=== PATIENT | male | born 1975 | race African-American/Black ===

== ENCOUNTER 2017-01-18 14:35 | Emergency (ER) | payer OTHER ==
[~2017-01-18] VITALS: Ht 180.3 cm; Wt 95.3 kg
--- NOTE | 2017-01-18 15:06 | NUR ---
arrival patient to er via pov with complaints of urinating blood patient placed on monitor vs wnl at this time
--- NOTE | 2017-01-18 15:17 | ER.PDOC ---
General Chief Complaint: Male Stated Complaint: URINATING BLOOD TRAVEL OUT OF US: No Time seen by MD: 15:03 Source: patient Exam Limitations: no limitations History of Present Illness Initial Comments blood in urine sudden onset 1 day no pain no hx no fever Allergies: Coded Allergies: No Known Allergies (Unverified , 01/18/17) Past Medical History Medical History: no pertinent history Surgical History: no surgical history Family History Significant Family History: no pertinent family hx Social History Smoking: non-smoker Alcohol Use: occassionally Review of Systems Constitutional: denies fever EENTM: denies eye pain Respiratory: denies cough Cardiovascular: denies chest pain Gastrointestinal: denies abdominal pain Genitourinary: hematuria Musculoskeletal: denies back pain Psychiatric/Neurological: denies anxiety Hematologic/Lymphatic: denies anemia All Other Systems: Reviewed and Negative Physical Exam General Appearance: No Apparent Distress, WD/WN EENT: eyes nml inspection, nml ENT inspection Neck: Non-Tender, Full Range of Motion Respiratory: chest non-tender, lungs clear CVS: reg rate & rhythm Gastrointestinal: Normal Bowel Sounds, No Organomegaly Back: Normal Inspection Extremities: Normal Range of Motion Neurologic/Psychiatric: tele tech II-XII NML as Tested Skin: Normal Color Lymphatic: No Adenopathy Results/Orders Results/Orders Laboratory Tests Test 01/18/17 15:13 01/18/17 15:19 Urine Collection Type VOID Urine Color BLOODY (YELLOW) Urine Appearance BLOODY (CLEAR) Urine Bilirubin NEGATIVE MG/DL (NEGATIVE) Urine Ketones NEGATIVE (NEGATIVE) Urine Specific Chestnut 1.015 (1.005-1.035) Urine pH 6.5 (5.0-6.0) Urine Protein 500 mg/dL (NEGATIVE) Urine Urobilinogen NORMAL (NEGATIVE) Urine Nitrate NEGATIVE (NEGATAIVE) Urine Leukocyte Esterase NEGATIVE (NEGATIVE) Urine Blood 250 4+ (NEGATIVE) Urine RBC TNTC RBC/HPF (NONE SEEN) Urine WBC NONE SEEN WBC/HPF (0-2) Urine Squamous Epithelial Cells NONE SEEN #/HPF (FEW) Urine Bacteria NONE SEEN (NONE SEEN) Urine Glucose NORMAL (NEGATIVE) White Blood Count 5.0 10^3/uL (4.5-11.0) Red Blood Count 4.91 10^6/uL (4.50-5.90) Hemoglobin 12.5 g/dL (13.9-16.3) Hematocrit 39.9 % (37.0-53.0) Mean Corpuscular Volume 81.3 fL (78-100) Mean Corpuscular Hemoglobin 25.5 pg (26-34) Mean Corpuscular Hemoglobin Concent 31.3 g/dL (33-37) Red Cell Distribution Width 14.4 % (11.5-14.5) Platelet Count 247 10^3/uL (150-400) Mean Platelet Volume 9.7 fL (7.8-11.0) Neutrophils (%) (Auto) 42.8 % (41.0-85.0) Lymphocytes (%) (Auto) 43.8 % (24.0-44.0) Monocytes (%) (Auto) 7.0 % (5.0-12.0) Neutrophils # (Auto) 2.2 10^3/uL (1.8-7.7) Lymphocytes # (Auto) 2.2 10^3/uL (1.0-4.8) Monocytes # (Auto) 0.4 10^3/uL (0.3-0.8) Absolute Immature Granulocyte (auto 0 10^3 u/L (0-2) Eosinophils % 5.4 % (0.0-5.0) Basophils % 1.0 % (0.0-0.2) Basophils # 0.1 10^3/uL (0.0-0.1) Eosinophil Count 0.3 10^3/uL (0.0-0.2) Sodium Level 138 mmol/L (132-145) Potassium Level 3.7 mmol/L (3.6-5.2) Chloride Level 103.0 mmol/L (96-109) Carbon Dioxide Level 26.9 mmol/L (20.0-32) Anion Gap 11.8 Blood Urea Nitrogen 17 mg/dL (7-18) Creatinine 1.22 mg/dL (0.59-1.40) Estimated GFR () 78.8 (>/=60) BUN/Creatinine Ratio 13.0 Glucose Level 94 mg/dL (70-110) Calcium Level 8.9 mg/dL (8.4-10.5) Total Bilirubin 0.4 mg/dL (0.2-1.0) Aspartate Amino Transf (AST/SGOT) 21 U/L (0-35) Alanine Aminotransferase (ALT/SGPT) 32 U/L (12-78) Alkaline Phosphatase 104 U/L (50-136) Total Protein 8.7 g/dL (6.4-8.2) Albumin 4.0 g/dL (3.4-5.0) Globulin 4.7 Percent Immature Gran (Cell Imm) 0.00 % (0.00-0.50) Progress Progress hematuria Departure Time of Disposition: 15:56 Disposition: 01 HOME, SELF-CARE Impression: Primary Impression: Hematuria Condition: Stable Additional Instructions: see urology regine Duration or Time Spent with Pa: 15 O'TAYLOR MORSE MD Jan 18, 2017 15:16
[2017-01-18 15:26] LABS: BILIRUBIN,URINE NEGATIVE (NEGATIVE); UROBILINOGEN,URINE NORMAL (NEGATIVE)
[2017-01-18 15:33] LABS: BASOPHIL # 0.1 10^3/uL (0.0-0.1); EOSINOPHIL # 0.3 10^3/uL (0.0-0.2); EOSINOPHIL % 5.4 % (0.0-5.0); HEMOGLOBIN 12.5 g/dL (13.9-16.3); LYMPHOCYTES # 2.2 10^3/uL (1.0-4.8); LYMPHOCYTES % 43.8 % (24.0-44.0); MEAN CELL HGB 25.5 pg (26-34); MEAN CELL HGB CONCENTRATION 31.3 g/dL (33-37); MEAN CORP VOLUME 81.3 fL (78-100); MEAN PLATELET VOLUME 9.7 fL (7.8-11.0); MONOCYTES # 0.4 10^3/uL (0.3-0.8); NEUTROPHIL # 2.2 10^3/uL (1.8-7.7); NEUTROPHILS % 42.8 % (41.0-85.0); RED CELL DISTRIBUTION WIDTH 14.4 % (11.5-14.5)
[2017-01-18 15:40] LABS: APPEARANCE,URINE BLOODY (CLEAR); UA COLOR BLOODY (YELLOW)
[2017-01-18 15:41] LABS: WBC,URINE NONE SEEN WBC/HPF (0-2)
[2017-01-18 15:51] LABS: CALCIUM 8.9 mg/dL (8.4-10.5); CARBON DIOXIDE 26.9 mmol/L (20.0-32)
[2017-01-18 16:30] VITALS: BP 147/83
== END 2017-01-18 16:26 | disposition home or self-care (01) ==
LOC: ER 14:35
DX: R31.9 Hematuria, unspecified (principal)
CPT/HCPCS: 36415; 80053; 81000; 85025; 87086; 99284